=== PATIENT | male | born 1970 | race Caucasian/White ===

== ENCOUNTER 2021-03-01 23:43 | Emergency (ER) | payer BC, SELFPAY ==
[2021-03-01 23:46] VITALS: BP 151/93; PULSE 99; RESP 26; TEMP 37.2; O2SAT 95; BMI 32.0
--- NOTE | 2021-03-01 23:46 | XRR_ITS ---
PROCEDURE INFORMATION: Exam: XR Left Hip Exam date and time: 03/01/2021 11:50 PM Age: 50 years old Clinical indication: Pain and injury or trauma; Fall; Blunt trauma (contusions or hematomas); Hip pain; Left hip; Injury date: 03/01/21 TECHNIQUE: Imaging protocol: XR Left hip. Views: 1 view hip with pelvis when performed. COMPARISON: No relevant prior studies available. FINDINGS: Bones/joints: There is a comminuted intertrochanteric fracture of the left femur there is about 2.8 cm of medial displacement of the distal fragment with varus deformity. Soft tissues: Unremarkable. XR/XR hip LT 1V wo/w pel [id number] IMPRESSION: Comminuted displaced intertrochanteric fracture of the left femur.
--- NOTE | 2021-03-01 23:50 | W.ED.FALL ---
HPI - Fall General: Chief Complaint: Extremity Injury, Lower Stated Complaint: FALL Time Seen by Provider: 03/01/21 23:43 Source: patient and EMS Mode of arrival: EMS Limitations: no limitations History of Present Illness: HPI Narrative: 50-year-old male states he was coming down a ladder and missed the last rung. States he then fell onto concrete roughly 8 to 12 inches. He states he landed on his left hip. He is not able to stand has had severe left hip pain since the event. States he is given 2 mg of Dilaudid which is helped his pain which he states is a 7 out of 10 currently. Is much worse with any type of movement. Denies hitting his head denies any other injuries. MD complaint: fall Associated symptoms-after fall: Denies abdominal pain, chest pain, headache(s) or neck pain Review of Systems Const: Denies: fever(s), chills, body aches or change in appetite Eyes: Denies: blurry vision or eye discomfort ENMT: Denies: throat pain or dental pain Card: Denies: chest pain Resp: Denies: dyspnea GI: Denies: abdominal pain, nausea, vomiting or diarrhea : Denies: dysuria Musc: Reports: joint pain; Denies: neck pain or back pain Skin/Breast: Denies: rash Neuro: Denies: headache(s) Psych: Denies: depression Aureliano/Lymph: Denies: easy bruising All/Imm: Denies: urticaria Physical Exam Const: COMMON NORMALS: no acute distress, patient oriented x3 and healthy appearing HENMT: COMMON NORMALS: normocephalic and atraumatic HEAD & SCALP: normocephalic and atraumatic Eye: COMMON NORMALS: Equal, round and reactive pupils present and EOMs intact bilaterally PUPIL: Yes Equal, round and reactive pupils present Neck/C-Spine: COMMON NORMALS: full ROM and supple Chest: COMMONS NORMALS: normal inspection of the chest and normal palpation of entire chest wall Resp: COMMON NORMALS: normal respiratory effort, No retractions, No use of accessory muscles and clear to auscultation bilaterally AUSCULTATION: clear to auscultation bilaterally Cardio: COMMON NORMALS: regular rate, regular rhythm and No murmurs present (Cardio) RATE: regular rate RHYTHM: regular rhythm GI: COMMON NORMALS: Normal to inspection, nondistended, normoactive bowel sounds present, Soft to palpation, non-tender and no masses PALPATION: Yes Soft to palpation Extremity: NARRATIVE EXTREMITY EXAM: Tenderness to left hip along with pain with any range of motion left leg is internally rotated and shortened Neuro: COMMON NORMALS: patient oriented x3, moves all extremities and no focal motor deficits Psych: COMMON NORMALS: mental status grossly normal, Normal thought process present and cooperative THOUGHT PROCESS: Normal thought process present Skin: COMMON NORMALS: no rashes or lesions noted and no wounds GENERAL SKIN EXAM: no rashes or lesions noted Course Vital Signs: Vital signs: Vital Signs Temperature 98.9 F 03/01/21 23:46 Pulse Rate 114 H 03/02/21 01:05 Respiratory Rate 16 03/02/21 01:05 Blood Pressure 125/62 03/02/21 01:05 Pulse Oximetry 94 03/02/21 01:05 MDM - Fall MDM Narrative: Medical decision making narrative: Patient presents here with left hip fracture from a fall. Patient has no other signs of injuries. Patient lives close to [place] and requested transfer to [facility]. I spoke to orthopedic surgeon there and will transfer there is a direct admission. Lab Data: Labs: Lab Results 03/02/21 03/02/21 03/02/21 Range/Units 00:24 00:24 00:24 WBC Cancelled Corrected WBC Cancelled RBC Cancelled Hgb Cancelled Hct Cancelled MCV Cancelled MCH Cancelled MCHC Cancelled RDW Cancelled Plt Count Cancelled MPV Cancelled Gran % Cancelled Neut % (Auto) Cancelled Lymph % (Auto) Cancelled [place] % (Auto) Cancelled Eos % (Auto) Cancelled Baso % (Auto) Cancelled Neut # (Auto) Cancelled Lymph # (Auto) Cancelled [place] # (Auto) Cancelled Eos # (Auto) Cancelled Baso # (Auto) Cancelled Absolute Gran (aut o) Cancelled Nucleated RBC % (a uto) Cancelled Nucleated RBCs # Cancelled PT 14.20 (12.1-14.9) SECO NDS INR 1.06 (0.8-1.2) Sodium Cancelled Potassium Cancelled Chloride Cancelled Carbon Dioxide Cancelled Anion Gap Cancelled BUN Cancelled Creatinine Cancelled GFR Calculation Cancelled Glucose Cancelled Calculated Osmolal ity Cancelled Calcium Cancelled Total Bilirubin Cancelled AST Cancelled ALT Cancelled Alkaline Phosphata se Cancelled Total Protein Cancelled Albumin Cancelled Globulin Cancelled 03/02/21 03/02/21 Range/Units 01:05 01:05 WBC 12.9 H Corrected WBC RBC 4.41 Hgb 13.7 Hct 40.0 L MCV 90.7 MCH 31.1 MCHC 34.3 RDW 12.2 Plt Count 245 MPV 9.7 Gran % Neut % (Auto) 86.1 Lymph % (Auto) 8.6 [place] % (Auto) 4.6 Eos % (Auto) 0.0 Baso % (Auto) 0.2 Neut # (Auto) 11.09 H Lymph # (Auto) 1.1 [place] # (Auto) 0.6 Eos # (Auto) 0.0 Baso # (Auto) 0.0 Absolute Gran (aut o) Nucleated RBC % (a uto) 0 Nucleated RBCs # 0.0 PT (12.1-14.9) SECO NDS INR (0.8-1.2) Sodium 139 Potassium 4.0 Chloride 105 Carbon Dioxide 24 Anion Gap 14.0 BUN 11 Creatinine 0.9 GFR Calculation 89.0 L Glucose 119 H Calculated Osmolal ity 289 Calcium 8.1 L Total Bilirubin 0.5 AST 24 ALT 22 Alkaline Phosphata se 58 Total Protein 6.2 L Albumin 3.9 Globulin 2.3 Imaging Data^: xr L hip: Attestation: I personally reviewed and interpreted this imaging study as follows: My impression: Fracture left hip EKG Data^: EKG 1: Attestation: I personally reviewed and interpreted this EKG as follows: EKG interpretation date: 03/02/21 EKG interpretation time: 00:15 Interpretation: sinus tachycardia hr [address] or t wave abnormalities qrs 88 qtc 388 Discharge Plan Discharge Patient Disposition: Xfer Short-Term Hosp Clinical Impression: Fracture of hip Qualifiers: Encounter type: initial encounter Fracture type: closed Laterality: left Qualified Code(s): S72.002A - Fracture of unspecified part of neck of left femur, initial encounter for closed fracture Condition: Stable Coding Level of Care Code ED [employer] for [employer] Fwd Exam Comprehensive
[2021-03-01] MEDS: LORazepam 2 mg/mL INJ 1 mL 1 MG IVP (23:53)
--- NOTE | 2021-03-01 23:56 | PC.NURSE ---
pt Freda phone number [phone]
--- NOTE | 2021-03-02 00:03 | XRR_ITS ---
PROCEDURE INFORMATION: Exam: XR Chest Exam date and time: 03/02/2021 12:04 AM Age: 50 years old Clinical indication: Injury or trauma; Fall; Blunt trauma (contusions or hematomas); Injury date: 03/01/21; Additional info: HTN TECHNIQUE: Imaging protocol: XR of the chest. Views: 1 view. COMPARISON: No relevant prior studies available. FINDINGS: Lungs: Minimal atelectasis or fibrosis in the left base.. No consolidation. Pleural spaces: Unremarkable. No pleural effusion. No pneumothorax. Heart/Mediastinum: Unremarkable. No cardiomegaly. Bones/joints: Unremarkable. XR/XR chest 1V portable [id number] IMPRESSION: No acute findings.
--- NOTE | 2021-03-02 00:04 | ECG_ITS ---
[facility] Test Date: 2021-03-02 Pat Name: MIGUELITO SMALL Department: Room: Gender: Male [employer]: : 1970 Requested By: Ju Barbour Order Number: [id number] Mary MD: Keyona Washintgon M.D. Measurements Intervals [place] Rate: 109 P: 63 GA: 185 QRS: 36 QRSD: 88 T: 11 QT: 324 QTc: 437 Interpretive Statements SINUS TACHYCARDIA No previous ECG available for comparison Electronically Signed On 03-03-2021 12:23:03 CDT by Keyona Washington M.D. [email or web address]
[2021-03-02 00:13] VITALS: RESP 18; O2SAT 95
[2021-03-02] MEDS: HYDROmorphone 1 mg/mL INJ 1 mL IVP ×2 (00:13→02:48)
[2021-03-02] MEDS: sodium chloride 0.9% 1,000 ML 999 ML IV (00:28)
[2021-03-02 00:44] LABS: INR 1.06 (0.8-1.2)
[2021-03-02 01:05] VITALS: BP 125/62; PULSE 114; RESP 16; O2SAT 94
[2021-03-02 01:10] LABS: Basophils % 0.2 %; Hemoglobin 13.7 g/dL (11.7-16.6); Lymphocytes # 1.1 10^3/uL (0.8-4.8); Lymphocytes % 8.6 %; Mean Corpuscular HGB Conc 34.3 g/dL (30.0-36.0); Mean Corpuscular Hemoglobin 31.1 pg (28.0-34.0); Mean Corpuscular Volume 90.7 fL (80-94); Mean Platelet Volume 9.7 fL (7.4-10.4); Monocytes # 0.6 10^3/uL (0.2-0.9); Monocytes % 4.6 %; Neutrophils # 11.09 10^3/uL (1.8-7.7); Neutrophils % 86.1 %; Nucleated Red Blood Cells % 0 %; Platelet Count 245 10^3/cmm (130-400); Red Blood Count 4.41 10^6/uL (4.1-5.3); Red Cell Distribution Width 12.2 % (12.1-15.1); White Blood Count 12.9 10^3/uL (4.0-10.0)
[2021-03-02 01:30] LABS: Alanine Aminotransferase 22 U/L (0-41); Albumin Level 3.9 g/dL (3.5-5.2); Alkaline Phosphatase 58 IU/L (40-130); Aspartate Amino Transferase 24 U/L (0-40); Blood Urea Nitrogen 11 mg/dL (6-20); Calcium 8.1 mg/dL (8.5-10.5); Carbon Dioxide 24 mmol/L (22-29); Chloride 105 mmol/L (98-107); Globulin 2.3 g/dL (1.3-4.6); Glucose 119 mg/dL (65-115); Osmolality Calculated 289 mOsm/kg (285-295); Sodium 139 mmol/L (136-145); Total Bilirubin 0.5 mg/dL (0.15-1.2); Total Protein 6.2 g/dL (6.6-8.7)
[2021-03-02 01:45] VITALS: BP 134/64; PULSE 109; RESP 18; O2SAT 94
[2021-03-02 02:14] VITALS: BP 115/81; PULSE 104; RESP 16; O2SAT 94
[2021-03-02 02:47] VITALS: BP 128/79; PULSE 113; RESP 16; O2SAT 94
[2021-03-02 02:48] VITALS: RESP 16; O2SAT 94
== END 2021-03-02 02:54 | disposition short-term general hospital (02) ==
LOC: ER 03-02 01:03
PROVIDERS: Emergency Provider Emergency Medicine; PCP Internal Medicine
DX: S72.002A Fracture of unspecified part of neck of left femur, initial encounter for closed fracture (principal); W11.XXXA Fall on and from ladder, initial encounter
CPT/HCPCS: 71045; 73501; 80053; 85025; 85610; 93005; 96361; 96374; 96375; 96376; 99285; J1170; J2060; J7030